=== PATIENT | male | born 1955 | race Caucasian/White ===

== ENCOUNTER → 2017-11-05 | Outpatient (CLI) | payer OTHER | END | disposition home or self-care (01) | LOC: KCIC 14:17 | DX: M25.711 Osteophyte, right shoulder (principal); M25.712 Osteophyte, left shoulder; G89.29 Other chronic pain | CPT/HCPCS: 73030 ==

== ENCOUNTER 2018-02-07 07:28 | Emergency (ER) | payer OTHER ==
[2018-02-07] MEDS: FLUORESCEIN OPHTH TEST STRIP. OU (07:47)
[2018-02-07] MEDS: TETRACAINE 0.5% OPHTH SOLUTION 4ML BOTTLE. OU (07:47)
== END 2018-02-07 08:32 | disposition home or self-care (01) ==
LOC: ER 07:28
DX: S05.01XA Injury of conjunctiva and corneal abrasion without foreign body, right eye, initial encounter (principal); H10.31 Unspecified acute conjunctivitis, right eye; H00.11 Chalazion right upper eyelid; X58.XXXA Exposure to other specified factors, initial encounter; Y93.89 Activity, other specified; Y99.8 Other external cause status; Y92.89 Other specified places as the place of occurrence of the external cause
CPT/HCPCS: 99283